=== PATIENT | male | born 1980 ===

== ENCOUNTER → 2020-02-03 10:34 | Outpatient (BNVA) | payer MEDICARE, MEDICAID, SELFPAY | PROVIDERS: PCP Family Medicine; Referring Provider Family Medicine; Visit Provider Surgery | DX: Z01.818 Encounter for other preprocedural examination (principal); E66.01 Morbid (severe) obesity due to excess calories; R06.02 Shortness of breath; Z68.42 Body mass index [BMI] 45.0-49.9, adult; Z98.84 Bariatric surgery status | CPT/HCPCS: Q3014 ==

== ENCOUNTER → 2020-02-18 08:38 | Outpatient (BNVA) | payer MEDICARE, MEDICAID, SELFPAY | PROVIDERS: PCP Family Medicine; Visit Provider Surgery | DX: E66.01 Morbid (severe) obesity due to excess calories (principal); Z68.43 Body mass index [BMI] 50.0-59.9, adult; Z98.84 Bariatric surgery status | CPT/HCPCS: Q3014 ==

== ENCOUNTER → 2020-03-03 08:26 | Outpatient (BNVA) | payer MEDICARE, MEDICAID, SELFPAY | PROVIDERS: PCP Family Medicine; Visit Provider Dietitian, Registered | DX: Z76.89 Persons encountering health services in other specified circumstances (principal) ==

== ENCOUNTER 2020-03-04 06:38 | Day surgery (SDC) | payer MEDICARE, MEDICAID, SELFPAY ==
--- NOTE | 2020-03-03 10:24 | HO.ANESPROP2 ---
Documented by User: Ann-Marie Patricia 03/03/20 10:25 HPI - Anesthesia Eval Consult details Narrative: 39yo M for Upper Endoscopy [facility] Past Medical History Medical History (Updated 03/04/20 @ 07:34 by Marley Aguero) Anxiety BMI 50.0-59.9, adult Chronic pain Depression DJD (degenerative joint disease) GERD (gastroesophageal reflux disease) Gout Hyperlipidemia Neuropathy MILTON on CPAP PTSD (post-traumatic stress disorder) Shortness of breath Type 2 diabetes mellitus Family History Family History Father Cancer Diverticulitis Mother Diverticulitis Brother No problems noted. Surgical History Surgical History LAP-BAND surgery status Social History Social History Alcohol intake: current Alcohol intake frequency: holidays/special occasions only Smoking Status: Former smoker Use of substances other than those prescribed or required for medical reasons: Yes Substance Use Frequency: Occasionally Advance Directives: No Advance Directives Information Provided: No Meds Allergies Allergy/AdvReac Type Severity Reaction Status Date / Time pregabalin [From Lyrica] Allergy Mild ANGRY Verified 03/04/20 06:44 Home Medications Medication Instructions Recorded Confirmed Type cyclobenzaprine 10 mg tablet 10 mg PO BEDTIME 02/03/20 03/04/20 History dulaglutide 1.5 mg/0.5 mL 1.5 mg SUBCUT QWEEK 02/03/20 03/04/20 History subcutaneous pen injector esomeprazole magnesium 40 mg 40 mg PO DAILY 02/03/20 03/04/20 History capsule,delayed release losartan 50 mg tablet 50 mg PO DAILY 02/03/20 03/04/20 History metformin 500 mg tablet,extended 500 mg PO BID 02/03/20 03/04/20 History release 24 hr oxycodone 15 mg tablet 15 mg PO DAILY PRN tab 02/03/20 03/04/20 History oxycodone 30 mg tablet 30 mg PO TID PRN 02/03/20 03/04/20 History pravastatin 20 mg tablet 20 mg PO BEDTIME 02/03/20 03/04/20 History Exam Exam Date and Time: March 03, 2020 1024 Assessment and Plan Assessment Anesthesia Assessment: Chart Reviewed Documented by User: Marley Aguero 03/04/20 07:45 PMFSH Past Medical History Medical History (Updated 03/04/20 @ 07:34 by Marley Aguero) Anxiety BMI 50.0-59.9, adult Chronic pain Depression DJD (degenerative joint disease) GERD (gastroesophageal reflux disease) Gout Hyperlipidemia Neuropathy MILTON on CPAP PTSD (post-traumatic stress disorder) Shortness of breath Type 2 diabetes mellitus Family History Family History Father Cancer Diverticulitis Mother Diverticulitis Brother No problems noted. Family history of problems with anesthesia: No Surgical History Surgical History LAP-BAND surgery status History of Problems with Anesthesia: No Social History Social History Alcohol intake: current Alcohol intake frequency: holidays/special occasions only Smoking Status: Former smoker Use of substances other than those prescribed or required for medical reasons: Yes Substance Use Frequency: Occasionally Advance Directives: No Advance Directives Information Provided: No Meds Allergies Allergy/AdvReac Type Severity Reaction Status Date / Time pregabalin [From Lyrica] Allergy Mild ANGRY Verified 03/04/20 06:44 Home Medications Medication Instructions Recorded Confirmed Type cyclobenzaprine 10 mg tablet 10 mg PO BEDTIME 02/03/20 03/04/20 History dulaglutide 1.5 mg/0.5 mL 1.5 mg SUBCUT QWEEK 02/03/20 03/04/20 History subcutaneous pen injector esomeprazole magnesium 40 mg 40 mg PO DAILY 02/03/20 03/04/20 History capsule,delayed release losartan 50 mg tablet 50 mg PO DAILY 02/03/20 03/04/20 History metformin 500 mg tablet,extended 500 mg PO BID 02/03/20 03/04/20 History release 24 hr oxycodone 15 mg tablet 15 mg PO DAILY PRN tab 02/03/20 03/04/20 History oxycodone 30 mg tablet 30 mg PO TID PRN 02/03/20 03/04/20 History pravastatin 20 mg tablet 20 mg PO BEDTIME 02/03/20 03/04/20 History Exam Height,Weight and Vital Signs: Vital Signs Temp Pulse Resp BP Pulse Ox 03/04/20 06:48 98.5 F 75 18 123/78 97 Pertinent Lab Results Pertinent Lab Results: Lab Results 03/04/20 Range/Units 07:11 POC Glucose 113 (60-115) mg/dL 12 lead EKG: NSR 62. No T wave inversion Narrative Narrative: EKG on monitor shows T wave inversion. Patient with morbid obesity, diabetes. Asymptomatic. Will obtain 12 lead EKG Airway Mallampati Class: II TM Dist: >3cm Neck ROM: Full Heart: RRR Lungs: CTAB Assessment and Plan Assessment Anesthesia Assessment: Anesthesia Plan Discussed and Chart Reviewed Final Anesthetic Review NPO: Yes ASA Class: III Final Preanesthetic Review: No Changes in Pt Med Stat, Meds/Allgs Chart Reviewed, Consent Obtained/Reviewed and Anes Risks/Benef Reviewed Patient Risk: High Procedure Risk: Low Assessment/Block/Sedation in SS: Assess/Block/Sedation-SS Anesthetic Plan Anesthetic Plan: MAC: Disposition: Standard PACU
--- NOTE | 2020-03-03 13:08 | MHC.SHP ---
Pre-Procedural Eval Section B Chief Complaint: severe obesity Allergies: Allergies Allergy/AdvReac Type Severity Reaction Status Date / Time pregabalin [From Lyrica] Allergy Mild ANGRY Verified 02/18/20 16:04 Plan I have reviewed the history and physical and performed a pertinent physical examination on my patient. No changes have occurred unless specified.
--- NOTE | 2020-03-04 | ECG_ITS ---
Test Reason : ABN EKG PREOP Blood Pressure : / mmHG Vent. Rate : 062 BPM Atrial Rate : 062 BPM P-R Int : 148 ms QRS Dur : 094 ms QT Int : 410 ms P-R-T Axes : 023 001 009 degrees QTc Int : 416 ms Normal sinus rhythm Normal ECG No previous ECGs available Referred By: Marley Aguero Electronically Signed By:STACY SALES MD
[2020-03-04 06:48] VITALS: BP 123/78; PULSE 75; RESP 18; TEMP 36.9; O2SAT 97; BMI 56.1
[2020-03-04 07:14] LABS: Glucose, Whole Blood 113 mg/dL (60-115)
[2020-03-04] MEDS: Lactated Ringers 1,000 ML 100 ML IVCONT (07:32)
[2020-03-04 08:12] VITALS: BP 120/68; PULSE 93; RESP 16; TEMP 36.4; O2SAT 99
--- NOTE | 2020-03-04 08:25 | PC.NURSE ---
0817 PT AWAKE ABLE TO REPOSITION SELF O2 DCD TRIAL RA
--- NOTE | 2020-03-04 08:26 | PC.NURSE ---
0822 O2 DCD START SIPS PO SWALLOWS WITHOUT ISSUES
[2020-03-04 08:27] VITALS: BP 115/61; PULSE 85; RESP 18; O2SAT 97
--- NOTE | 2020-03-04 08:35 | OP_ITS ---
SURGEON: Sola Carroll MD PREOPERATIVE DIAGNOSIS: POSTOPERATIVE DIAGNOSIS: PROCEDURE PERFORMED: Upper endoscopy with antral biopsy x2. ESTIMATED BLOOD LOSS: COMPLICATIONS: None. ANESTHESIA: Total intravenous anesthesia with propofol given by the nurse television service engineer. ASSISTANTS: None. SPECIMENS: PREPROCEDURE DIAGNOSIS: History of gastric band with poor weight loss. POSTPROCEDURE DIAGNOSIS: Antral gastritis. CONDITION: Postprocedure, good. DESCRIPTION OF PROCEDURE: The patient was brought into the operating room, placed on stretcher in the left lateral decubitus position. A safety time-out was performed. Total intravenous anesthesia was administered using propofol by the nurse television service engineer. Once the patient was adequately sedated, the gastroscope was placed in posterior oropharynx, passed into the esophagus under direct vision. The entirety of the esophageal mucosa was evaluated down to the level of the GE junction was normal. GE junction was located at 38 cm from the incisors. There was no evidence of gastric band slippage. The gastric band was located at 40 cm from the incisors. The gastroscope was easily passed through the gastric band into the lower stomach and then retroflexed. There was no evidence of gastric band slippage or erosion. The mucosa was normal. Gastroscope was passed to the pre-pyloric region. There was antral gastritis, which was biopsied x2. There was erythema and increased granularity of the mucosa at the antrum. Gastroscope was passed through the pylorus down to the 3rd portion of duodenum, all of which was normal. All these portions of the upper endoscopy were documented using photo documentation. The gastroscope was retracted back in the stomach. Stomach was desufflated and the gastroscope was removed without difficulty. The patient tolerated the procedure well and was sent to recovery room in stable condition. SPECIMEN: Antral biopsy x2. MD DOMINGO Morales/MODL / [id number]
--- NOTE | 2020-03-04 08:40 | PC.NURSE ---
0830AWAKE ALERT O2 SATS 98 MONITORS AND IVF DCD DRESSES SELF ON STRETCHER SITTING CALL ANDERSON IN REACH PLAN TO AMB TO DC AREA
--- NOTE | 2020-03-04 08:52 | HO.POSTANES ---
Post Anesthesia Evaluation Post Anesthesia Evaluation Vital Signs: Vital Signs Temp Pulse Resp BP Pulse Ox 03/04/20 08:27 97.5 F 85 18 115/61 97 03/04/20 08:12 97.5 F 93 16 120/68 99 03/04/20 06:48 98.5 F 75 18 123/78 97 Anesthesia: General (tiva) Mental Status: Awake Pain Control: Satisfactory Nausea/Vomiting: None Hydration: Adequate Anesthesia-Related Issues: No Anes. Related Issues
--- NOTE | 2020-03-05 16:23 | PM.OP ---
Brief Operative Note Date of Service: 03/04/20 Pre-op diagnosis: Poor weight loss status post gastric band Post-op diagnosis: other (Mild antral gastritis) Procedure: Esophagogastroduodenoscopy and antral biopsy x2 Implants: None Surgeon: Sola Carroll MD Anesthesia: MAC Estimated blood loss (mL): 0 Pathology: other (Antral biopsy) Condition: stable Disposition: PACU
== END 2020-03-04 09:01 | disposition home or self-care (01) ==
PROVIDERS: PCP Family Medicine; Visit Provider Surgery
PROC: 0DJ08ZZ Inspection of Upper Intestinal Tract, Via Natural or Artificial Opening Endoscopic (ICD-10-PCS; CPT 43235; principal; 2020-03-04 07:30)
DX: E66.01 Morbid (severe) obesity due to excess calories (principal); Z68.43 Body mass index [BMI] 50.0-59.9, adult; K29.50 Unspecified chronic gastritis without bleeding; Z98.84 Bariatric surgery status; K21.9 Gastro-esophageal reflux disease without esophagitis; E11.9 Type 2 diabetes mellitus without complications; G47.33 Obstructive sleep apnea (adult) (pediatric); E78.5 Hyperlipidemia, unspecified; G62.9 Polyneuropathy, unspecified; Z79.84 Long term (current) use of oral hypoglycemic drugs; Z79.899 Other long term (current) drug therapy
CPT/HCPCS: 43239; 82947; 88305; 88342; 93005; J2250; J2765

== ENCOUNTER → 2020-03-25 08:10 | Outpatient (BNVA) | payer MEDICARE, MEDICAID, SELFPAY | PROVIDERS: PCP Family Medicine; Visit Provider Dietitian, Registered ==

== ENCOUNTER 2020-03-26 09:50 | Outpatient (REF) | payer MEDICARE, MEDICAID, SELFPAY ==
--- NOTE | 2020-03-26 10:27 | XR_ITS ---
EXAMINATION: XR CHEST CLINICAL INFORMATION: Shortness of breath COMPARISON: None TECHNIQUE: 2 views of the chest were obtained. FINDINGS: The lungs are well expanded. There is no focal consolidation, edema, or effusion. No pneumothorax. The cardiomediastinal silhouette is within normal limits. No acute osseous abnormality. XR/XR chest 2V IMPRESSION: Clear lungs.
[2020-03-26 10:54] LABS: MANUAL DIFF FLAG NO
[2020-03-26 11:01] LABS: Basophils Absolute Auto 0.1 X10*3/uL (0.0-0.2); Basophils Percent Auto 0.8 % (0-2); Eosinophils Absolute Auto 0.2 X10*3/uL (0.0-0.4); Eosinophils Percent Auto 2.2 % (0-4); Hematocrit 49.2 % (42-52); Hemoglobin 16.2 g/dl (14.0-18.0); Imm Gran Abs Auto 0.02 X10*3/uL (0.00-0.03); Imm Gran Pct Auto 0.2 % (0.0-0.4); Lymphocytes Absolute Auto 2.4 X10*3/uL (1.2-4.9); Lymphocytes Percent Auto 27.8 % (20-40); Mean Corpuscular HGB Conc 32.9 g/dl (31.0-36.0); Mean Corpuscular Hemoglobin 27.1 pg (27.0-33.0); Mean Corpuscular Volume 82.4 fL (80-98); Mean Platelet Volume 10.6 fL (9.4-12.4); Monocytes Absolute Auto 0.5 X10*3/uL (0.1-1.2); Monocytes Percent Auto 5.7 % (2-11); Neutrophils Absolute Auto 5.5 X10*3/uL (2.0-8.3); Neutrophils Percent Auto 63.3 % (45-73); Platelet Count 316 X10*3/uL (160-400); Red Blood Count 5.97 X10*6/uL (4.60-5.80); Red Cell Distribution Width 12.8 % (11.0-16.0); White Blood Count 8.7 X10*3/uL (4.8-10.8)
[2020-03-26 11:27] LABS: Alanine Aminotransferase 43 U/L (0-40); Alkaline Phosphatase 73 U/L (39-117); Anion Gap 13 (12-20); Aspartate Amino Transferase 25 U/L (5-37); Bilirubin Total 0.6 mg/dL (0.0-1.0); Blood Urea Nitrogen 16 mg/dL (9-16); C Reactive Protein 2.41 mg/dL (< or = 0.50); Carbon Dioxide 26 mmol/L (22-29); Chloride 103 mmol/L (96-108); Cholesterol 126 mg/dL; Estimated Glomerular Filt Rate > 60; Glucose Fasting 126 mg/dL (60-99); HDL Cholesterol 27 mg/dL; Iron 56 mcg/dL (45-160); LDL Cholesterol Calculated 82 mg/dl; Percent Iron Saturation 18 % (15-50); Sodium 137 mmol/L (135-145); Total Iron Binding Capacity 317 mcg/dL (228-428); Total Protein 7.2 g/dL (6.5-8.0); Triglycerides 87 mg/dL; Unsaturated Iron Binding 261 ug/dL
[2020-03-26 11:50] LABS: Thyroid Stimulating Hormone 1.36 uIU/mL (0.32-4.0); Vitamin D 25-OH Total 9.1 ng/mL (>30)
[2020-03-26 11:54] LABS: Vitamin B12 530 pg/mL (200-900)
[2020-03-27 13:13] LABS: Calcium (PTHI) 9.4 mg/dL (8.6-10.3); PTHI 46 pg/mL (14-64)
[2020-03-30 04:27] LABS: Zinc 58 mcg/dL (60-130)
[2020-03-30 16:12] LABS: Vitamin A 38 mcg/dL (38-98)
[2020-03-31 10:17] LABS: Vitamin B1 <6 nmol/L (8-30)
== END 2020-03-26 09:51 | disposition home or self-care (01) ==
LOC: HO.LAB 09:50
PROVIDERS: PCP Family Medicine; Visit Provider Surgery
DX: Z01.818 Encounter for other preprocedural examination (principal); R06.02 Shortness of breath; E66.01 Morbid (severe) obesity due to excess calories; Z68.43 Body mass index [BMI] 50.0-59.9, adult
CPT/HCPCS: 36415; 71046; 80053; 80061; 82306; 82607; 83540; 83970; 84425; 84443; 84590; 84630; 85025; 86140

== ENCOUNTER 2020-03-27 14:14 | Outpatient (REF) | payer MEDICARE, MEDICAID, SELFPAY ==
[2020-03-28 14:01] LABS: H Pylori Breath Test NOT DETECTED (NOT DETECTED)
== END 2020-03-27 14:15 | disposition home or self-care (01) ==
LOC: HO.LNP 14:14
PROVIDERS: PCP Family Medicine; Visit Provider Surgery
DX: E66.01 Morbid (severe) obesity due to excess calories (principal); Z68.43 Body mass index [BMI] 50.0-59.9, adult; Z11.0 Encounter for screening for intestinal infectious diseases
CPT/HCPCS: 83013; 99211; 99212

== ENCOUNTER → 2020-05-12 13:58 | Outpatient (BNVA) | payer MEDICARE, MEDICAID, SELFPAY | PROVIDERS: PCP Family Medicine; Visit Provider Surgery | DX: E66.01 Morbid (severe) obesity due to excess calories (principal); Z68.43 Body mass index [BMI] 50.0-59.9, adult | CPT/HCPCS: 99212 ==

== ENCOUNTER → 2020-05-29 14:14 | Outpatient (BNVA) | payer MEDICARE, MEDICAID, SELFPAY | PROVIDERS: PCP Family Medicine; Visit Provider Surgery | DX: E66.01 Morbid (severe) obesity due to excess calories (principal); Z68.43 Body mass index [BMI] 50.0-59.9, adult | CPT/HCPCS: 99212 ==

== ENCOUNTER → 2020-06-04 08:13 | Outpatient (BNVA) | payer MEDICARE, MEDICAID, SELFPAY | PROVIDERS: PCP Family Medicine; Visit Provider Dietitian, Registered | DX: E66.9 Obesity, unspecified (principal); Z68.43 Body mass index [BMI] 50.0-59.9, adult | CPT/HCPCS: 97803 ==

== ENCOUNTER → 2020-06-12 13:49 | Outpatient (BNVA) | payer MEDICARE, MEDICAID, SELFPAY | PROVIDERS: PCP Family Medicine; Visit Provider Surgery | DX: E66.01 Morbid (severe) obesity due to excess calories (principal); Z68.43 Body mass index [BMI] 50.0-59.9, adult | CPT/HCPCS: 99212 ==

== ENCOUNTER → 2020-06-23 14:32 | Outpatient (BNVA) | payer MEDICARE, MEDICAID, SELFPAY | PROVIDERS: PCP Family Medicine; Referring Provider Family Medicine; Visit Provider Surgery | DX: E66.01 Morbid (severe) obesity due to excess calories (principal); Z68.43 Body mass index [BMI] 50.0-59.9, adult | CPT/HCPCS: 99212 ==

== ENCOUNTER → 2020-06-26 13:33 | Outpatient (BNVA) | payer MEDICARE, MEDICAID, SELFPAY | PROVIDERS: PCP Family Medicine; Referring Provider Family Medicine; Visit Provider Physician Assistant ==

== ENCOUNTER 2020-07-01 06:13 | Inpatient (IN) | payer MEDICARE, MEDICAID, SELFPAY ==
--- NOTE | 2020-06-23 15:35 | ECG_ITS ---
Test Reason : SOB Blood Pressure : / mmHG Vent. Rate : 056 BPM Atrial Rate : 056 BPM P-R Int : 134 ms QRS Dur : 090 ms QT Int : 432 ms P-R-T Axes : 023 002 018 degrees QTc Int : 416 ms Sinus bradycardia Otherwise normal ECG When compared with ECG of 04-MAR-2020 07:36, No significant change was found Referred By: Sola Carroll Electronically Signed By:BETH RODRIGES
[2020-06-23 16:06] LABS: MANUAL DIFF FLAG NO
[2020-06-23 16:10] LABS: Basophils Absolute Auto 0.1 X10*3/uL (0.0-0.2); Basophils Percent Auto 0.6 % (0-2); Eosinophils Absolute Auto 0.1 X10*3/uL (0.0-0.4); Hematocrit 47.7 % (42-52); Hemoglobin 15.6 g/dl (14.0-18.0); Imm Gran Abs Auto 0.03 X10*3/uL (0.00-0.03); Imm Gran Pct Auto 0.3 % (0.0-0.4); Lymphocytes Absolute Auto 2.3 X10*3/uL (1.2-4.9); Lymphocytes Percent Auto 19.9 % (20-40); Mean Corpuscular HGB Conc 32.7 g/dl (31.0-36.0); Mean Corpuscular Hemoglobin 27.1 pg (27.0-33.0); Mean Corpuscular Volume 82.8 fL (80-98); Mean Platelet Volume 10.3 fL (9.4-12.4); Monocytes Absolute Auto 0.6 X10*3/uL (0.1-1.2); Monocytes Percent Auto 4.9 % (2-11); Neutrophils Absolute Auto 8.4 X10*3/uL (2.0-8.3); Neutrophils Percent Auto 73.3 % (45-73); Platelet Count 322 X10*3/uL (160-400); Red Blood Count 5.76 X10*6/uL (4.60-5.80); Red Cell Distribution Width 13.7 % (11.0-16.0); White Blood Count 11.5 X10*3/uL (4.8-10.8)
[2020-06-23 16:18] LABS: INTERNATIONAL NORM RATIO 1.1 (0.9-1.1)
[2020-06-23 16:23] LABS: Partial Thromboplastin Time 41.3 SEC (24.1-38.0)
[2020-06-23 16:36] LABS: Albumin Level 4.2 g/dL (3.5-5.0); Anion Gap 14 (12-20); Blood Urea Nitrogen 16 mg/dL (9-16); Calcium 9.4 mg/dL (8.4-10.2); Carbon Dioxide 23 mmol/L (22-29); Chloride 106 mmol/L (96-108); Estimated Glomerular Filt Rate > 60; Glucose Random 120 mg/dL (60-115); Potassium 4.4 mmol/L (3.3-5.1); Sodium 139 mmol/L (135-145)
[2020-06-29 09:28] VITALS: BMI 50.3
--- NOTE | 2020-06-30 08:56 | P.CONAN_ITS ---
Documented by User: Ann-Marie Gomez 06/30/20 08:57 HPI - Anesthesia Eval Consult details Narrative: 40yo M for Laparosopic Lap Band Removal to Sleeve Gastrectomy MILTON, but CPAP broken PMFSH Active Problems Active Problems: All Active Problems (Updated 06/29/20 @ 09:23 by Amber Rodríguez) Morbid obesity with BMI of 50.0-59.9, adult (Acute) Preoperative examination (Acute) Vitamin D deficiency (Acute) Zinc deficiency (Acute) Vitamin B1 deficiency (Acute) BMI 50.0-59.9, adult (Acute) MILTON on CPAP (Acute) Shortness of breath (Acute) LAP-BAND surgery status (Acute) Past Medical History Medical History Anxiety BMI 50.0-59.9, adult Chronic pain Depression DJD (degenerative joint disease) Fracture of finger of right hand GERD (gastroesophageal reflux disease) Gout Hyperlipidemia Lumbar herniated disc Neuropathy MILTON on CPAP PTSD (post-traumatic stress disorder) Shortness of breath Type 2 diabetes mellitus Family History Family History Father Cancer Diverticulitis Mother Diverticulitis Brother No problems noted. Family history of problems with anesthesia: No Surgical History Surgical History History of endoscopy LAP-BAND surgery status History of Problems with Anesthesia: No Social History Social History Are you a primary animal daycare provider to a significant other at home: No Do you presently have visiting nurse or other home services: No Alcohol intake: current Alcohol intake frequency: holidays/special occasions only Smoking Status: Former smoker Smoking Quit Date: Age 23 Use of substances other than those prescribed or required for medical reasons: No Have you been hit, kicked, punched, or otherwise hurt by someone within the past year? If so, by whom?: No Are you DNR?: No Advance Directives: No Advance Directives Information Provided: No Advance Directives on File: No Recently lost weight without trying: No How much weight loss: 34pounds or more Eating poorly because of decreased appetite: No Nutrition screen score: 4 Nutrition Risks: No Nutritional Risk Poor oral hygiene: No Meds Allergies Allergy/AdvReac Type Severity Reaction Status Date / Time pregabalin [From Lyrica] Allergy Mild ANGRY Verified 06/29/20 09:25 Home Medications Medication Instructions Recorded Confirmed Last Taken Type dulaglutide 1.5 mg/0.5 mL 1.5 mg SUBCUT QWEEK 02/03/20 06/29/20 Unknown History subcutaneous pen injector esomeprazole magnesium 40 mg 40 mg PO DAILY 02/03/20 06/29/20 Unknown History capsule,delayed release losartan 50 mg tablet 50 mg PO DAILY 02/03/20 06/29/20 Unknown History metformin 500 mg tablet,extended 500 mg PO BID 02/03/20 06/29/20 Unknown History release 24 hr oxycodone 15 mg tablet 15 mg PO DAILY PRN tab 02/03/20 06/29/20 Unknown History oxycodone 30 mg tablet 30 mg PO TID PRN 02/03/20 06/29/20 Unknown History pravastatin 20 mg tablet 20 mg PO BEDTIME 02/03/20 06/29/20 Unknown History allopurinol 300 mg tablet 300 mg PO DAILY 05/12/20 06/29/20 Unknown History cyclobenzaprine 10 mg tablet 10 mg PO BEDTIME PRN 05/12/20 06/29/20 Unknown History zinc 50 mg PO DAILY 06/29/20 06/29/20 Unknown History Exam Exam Date and Time: June 30, 2020 0856 Height,Weight and Vital Signs: Height 5 ft 11 in Weight 163.747 kg Pertinent Lab Results Pertinent Lab Results: Laboratory Tests 06/23/20 06/23/20 06/23/20 15:44 15:44 15:44 WBC 11.5 H RBC 5.76 Hgb 15.6 Hct 47.7 MCV 82.8 MCH 27.1 MCHC 32.7 RDW 13.7 Plt Count 322 MPV 10.3 Immature Gran % (Auto) 0.3 Neut % (Auto) 73.3 H Lymph % (Auto) 19.9 L Gooding % (Auto) 4.9 Eos % (Auto) 1.0 Baso % (Auto) 0.6 Lymph # (Auto) 2.3 Gooding # (Auto) 0.6 Eos # (Auto) 0.1 Baso # (Auto) 0.1 Abs Immat Gran (auto) 0.03 Absolute Neuts (auto) 8.4 H Absolute Nucleated RBC 0.000 Nucleated RBC % (auto) 0.0 PT 13.0 INR 1.1 APTT 41.3 H Sodium 139 Potassium 4.4 Chloride 106 Carbon Dioxide 23 Anion Gap 14 BUN 16 Creatinine 0.87 Estim Creat Clear Calc TNP Estimated GFR > 60 Random Glucose 120 H Calcium 9.4 Albumin 4.2 Blood Type Antibody Screen 06/23/20 15:44 WBC RBC Hgb Hct MCV MCH MCHC RDW Plt Count MPV Immature Gran % (Auto) Neut % (Auto) Lymph % (Auto) Gooding % (Auto) Eos % (Auto) Baso % (Auto) Lymph # (Auto) Gooding # (Auto) Eos # (Auto) Baso # (Auto) Abs Immat Gran (auto) Absolute Neuts (auto) Absolute Nucleated RBC Nucleated RBC % (auto) PT INR APTT Sodium Potassium Chloride Carbon Dioxide Anion Gap BUN Creatinine Estim Creat Clear Calc Estimated GFR Random Glucose Calcium Albumin Blood Type B Positive Antibody Screen NEGATIVE Narrative Narrative: EKG 06/2020 Vent. Rate : 056 BPM Atrial Rate : 056 BPM P-R Int : 134 ms QRS Dur : 090 ms QT Int : 432 ms P-R-T Axes : 023 002 018 degrees QTc Int : 416 ms Sinus bradycardia Otherwise normal ECG When compared with ECG of 04-MAR-2020 07:36, No significant change was found Assessment and Plan Assessment Anesthesia Assessment: Chart Reviewed Documented by User: Jannette Monahan 07/01/20 07:27 [facility] Past Medical History Medical History Anxiety BMI 50.0-59.9, adult Chronic pain Depression DJD (degenerative joint disease) Fracture of finger of right hand GERD (gastroesophageal reflux disease) Gout Hyperlipidemia Lumbar herniated disc Neuropathy MILTON on CPAP PTSD (post-traumatic stress disorder) Shortness of breath Type 2 diabetes mellitus Family History Family History Father Cancer Diverticulitis Mother Diverticulitis Brother No problems noted. Surgical History Surgical History History of endoscopy LAP-BAND surgery status Social History Social History Are you a primary animal daycare provider to a significant other at home: No Do you presently have visiting nurse or other home services: No Alcohol intake: current Alcohol intake frequency: holidays/special occasions only Smoking Status: Former smoker Smoking Quit Date: Age 23 Use of substances other than those prescribed or required for medical reasons: No Have you been hit, kicked, punched, or otherwise hurt by someone within the past year? If so, by whom?: No Are you DNR?: No Advance Directives: No Advance Directives Information Provided: No Advance Directives on File: No Recently lost weight without trying: No How much weight loss: 34pounds or more Eating poorly because of decreased appetite: No Nutrition screen score: 4 Nutrition Risks: No Nutritional Risk Poor oral hygiene: No Meds Allergies Allergy/AdvReac Type Severity Reaction Status Date / Time pregabalin [From Lyrica] Allergy Mild ANGRY Verified 06/29/20 09:25 Home Medications Medication Instructions Recorded Confirmed Last Taken Type dulaglutide 1.5 mg/0.5 mL 1.5 mg SUBCUT QWEEK 02/03/20 06/29/20 Unknown History subcutaneous pen injector esomeprazole magnesium 40 mg 40 mg PO DAILY 02/03/20 06/29/20 Unknown History capsule,delayed release losartan 50 mg tablet 50 mg PO DAILY 02/03/20 06/29/20 Unknown History metformin 500 mg tablet,extended 500 mg PO BID 02/03/20 06/29/20 Unknown History release 24 hr oxycodone 15 mg tablet 15 mg PO DAILY PRN tab 02/03/20 06/29/20 Unknown History oxycodone 30 mg tablet 30 mg PO TID PRN 02/03/20 06/29/20 Unknown History pravastatin 20 mg tablet 20 mg PO BEDTIME 02/03/20 06/29/20 Unknown History allopurinol 300 mg tablet 300 mg PO DAILY 05/12/20 06/29/20 Unknown History cyclobenzaprine 10 mg tablet 10 mg PO BEDTIME PRN 03/23/21 05/10/21 Unknown History zinc 50 mg PO DAILY 06/29/20 06/29/20 Unknown History Exam Airway Mallampati Class: I TM Dist: >3cm Neck ROM: Full Assessment and Plan Assessment Anesthesia Assessment: Anesthesia Plan Discussed and Chart Reviewed Final Anesthetic Review NPO: Yes ASA Class: III Final Preanesthetic Review: No Changes in Pt Med Stat, Meds/Allgs Chart Reviewed, Consent Obtained/Reviewed and Anes Risks/Benef Reviewed Patient Risk: Intermediate Procedure Risk: Intermediate Assessment/Block/Sedation in SS: Assess/Block/Sedation-SS Anesthetic Plan Anesthetic Plan: GA Disposition: Standard PACU
--- NOTE | 2020-06-30 13:56 | MHC.SHP ---
Pre-Procedural Eval Section B Chief Complaint: obesity Allergies: Allergies Allergy/AdvReac Type Severity Reaction Status Date / Time pregabalin [From Lyrica] Allergy Mild ANGRY Verified 06/29/20 09:25 Plan I have reviewed the history and physical and performed a pertinent physical examination on my patient. No changes have occurred unless specified.
[2020-07-01] VITALS (20 sets, daily range): BP systolic 116–186; BP diastolic 60–89; PULSE 52–82; RESP 16–20; TEMP 35.6–36.9; O2SAT 97–100
[2020-07-01 06:48] LABS: COVID-19 Test Negative (Negative); IDNOW Serial# 9DD0AD1C
[2020-07-01 07:01] LABS: Glucose, Whole Blood 81 mg/dL (60-115)
[2020-07-01] MEDS: Lactated Ringers 1,000 ML 100 ML IVCONT (07:07)
--- NOTE | 2020-07-01 10:26 | P.BOP_ITS ---
Brief Operative Note Date of Service: 07/01/20 Pre-op diagnosis: Obesity, BMI 50.3, sleep apnea, hypercholesterolemia, and type 2 diabetes mellitus Post-op diagnosis: other ( same and hiatal hernia) Procedure: laparoscopic removal of gastric band, hiatal hernia repair, sleeve gastrectomy, racheal block, and intraoperative endoscopy Implants: covidien calli Surgeon: Sola Carroll MD Anesthesia: GETA Was an Grinding Machine Operator Automatic used for this Procedure?: Yes Grinding Machine Operator Automatic: Leticia Hayden Estimated blood loss (mL): 10 Pathology: other ( partial gastrectomy) Condition: stable Disposition: PACU
--- NOTE | 2020-07-01 10:29 | P.OP_ITS ---
Operative Note Operative Note Date of Service: 07/01/20 Narrative: Patient was brought into the operating room and placed on the operating room table in the supine position. General anesthesia was induced. Normal DVT prophylaxis was instituted and the patient received 2 grams of cefotetan preoperatively. The abdomen was then prepped and draped in the normal sterile fashion. A safety time-out was performed. A mixture of 1% lidocaine with epinephrine and ?% Marcaine plain was used to a nesthetize the planned incision site in the left upper quadrant. A #11 scalpel was used to make a 5 mm left upper quadrant transverse incision through which a veress needle was placed. Three pops were heard going through the fascia. A saline drop test was used to confirm that the veress needle was intraabdominal. An optiview technique was then used to place a 5mm port in the left upper quadrant. A 5 mm 30 degree laproscope was then placed through this port and the abdominal cavity was surveyed and was normal. the gastric band was seen as well as the tubing in the upper abdomen. The patient was placed in reverse Trendelenburg positioning. A mei liver retractor was then placed in the subxyphoid position and it was used to hold up the left lobe of the liver to the abdominal wall. This was secured to the bed using the liver retractor dickinson. A MATTHEW block was then performed for pain control on the right side of the abdomen. A 5 mm port was placed in the right upper quadrant near the falciform ligament. A 15 mm port was then placed in the mid epigastrium. One additional 5 mm port was placed in the left upper quadrant just to the left of the placement of the first port. I then performed a MATTHEW block on the left side of the abdomen. I then took down the adhesions of the omentum to the underside of the left lobe of the liver. We cut the gastric band tubing and umbilical the gastric band and removed it from its tunnel. We then removed the gastric band from the 15 mm port site. We then used the LigaSure device to take down the adhesions of the stomach to itself thereby opening up the gastric band tunnel until the stomach was completely flat. I then removed the epigastric fat pad; there was a small anterior hiatal hernia noted. I reapproximated the left and right crura with a total of 1 stitch of 2-0 ethibond and a laparoscopic knot pusher. There was no residual hiatal hernia. I then opened up the angle of His. We then gained entry into the lesser sac about 4-5 cm from the pylorus. I had anesthesia place a 34 Spanish orogastric tube into the distal antrum to use as a sizing tool for gastric pouch size. I divided the short gastric vessels up to the angle of His. We then started the creation of the gastric pouch by firing a 60 mm purple load endostapler up the stomach about 4-5 cm from the pylorus. We completed the creation of the gastric pouch using a total of 5 firings of a 60 mm purple load stapler. We had anesthesia remove the orogastric tube, then we clamped across the distal antrum using a fired 60 mm endostapler. We flattened the patient and then instilled normal saline surrounding the newly created staple line. I then performed an on-table endoscopy. I passed the gastroscopy into the posterior oropharynx and down the esophagus evaluating the esophageal mucosa which was normal. There was no evidence of hiatal hernia. I passed the gastroscope into the gastric pouch and insufflated the gastric pouch. There was healthy pink mucosa and no evidence of active bleeding. There was no evidence of leak on laparoscopy. I desufflated the gastric pouch and removed the endoscope. I removed the endostapler from the abdomen and suctioned the fluid from the left upper quadrant. I then removed the partial gastrectomy specimen through the epigastric 12 mm port site. I reapproximated the 12 mm port using a 0 maxon suture with a laparoscopic suture passer. I instilled local anesthetic into the fascial closure site and tied the suture down at a pressure of 8-10 mm of Hg. There was no residual fascial defect. We removed the liver retractor and the left upper quadrant 5 mm ports under direct visualization. There was no evidence of any active bleeding. I desufflated the abdomen through the last remaining port and removed the laparoscope and 5 mm port. We then used local anesthetic to anesthetize the skin overlying the subcutaneous port in the right mid lateral abdomen. I used a 11. Scalpel to make a 2 and half to 3 cm transverse incision overlying the subcutaneous port. I dissected the subcutaneous tissues down to the level of the gastric band port. We opened up the capsule overlying the gastric band port and removed the port and the residual gastric band tubing from the abdomen in its entirety and passed off the field. We placed local anesthetic in to the fascia and the subcutaneous tissues. We reapproximated all incisions with a 4-0 monocryl subcuticular stitch. We cleaned and dried the abdominal skin and applied dermabond skin glue to all skin incisions. All counts were correct at the end of the case. The patient was awake and in stable condition prior to extubation and transfer to the recovery room.
[2020-07-01] MEDS: ondansetron HCL 4 MG/2 ML VIAL IVPUSH ×3 (10:34→21:33)
[2020-07-01] MEDS: fentaNYL citrate/PF 100 MCG/2 ML VIAL 50 MCG IVPUSH ×4 (10:40→11:05)
--- NOTE | 2020-07-01 10:51 | PM.PNGS ---
Subjective Subjective Date of Service: 07/02/20 <Leticia Hayden PA-C - Last Filed: 07/02/20 09:52> 07/02/20 <Sola Carroll MD - Last Filed: 07/02/20 09:20> Interval history: POD #1: Patient is doing well. Has been ambulating, using the incentive spirometer, and tolerating po liquids. No nausea or abdominal pain. Has some mild incisional pain. <Leticia Hayden PA-C - Last Filed: 07/02/20 09:52> Pod #1 s/p lap removal of gastric band and port, sleeve gastrectomy, and hiatal hernia repair. Doing well. Tolerating stage 3 diet, ambulating in hallway. Pain well controlled. Denies nausea or vomiting. Vitals and labs reviewed and are within limit for post op day 1. On exam, patient is well appearing, abdomen is soft, nd, mild appropriate incisional tenderness. Incisions c/d/I with dermabond in place. Plan: d/c home today. Follow up with me in 2 weeks. <Sola Carroll MD - Last Filed: 07/02/20 09:20> Physical Exam Vital Signs: Vital Signs: Last Vital Signs Temp 98.0 F 07/01/20 10:30 Pulse 82 07/01/20 10:35 Resp 18 07/01/20 10:40 BP 156/81 H 07/01/20 10:35 Pulse Ox 99 07/01/20 10:35 Body Mass Index 50.3 <Leticia Hayden PA-C - Last Filed: 07/02/20 09:52> Const: General: cooperative, comfortable, no acute distress, alert and awake <Leticia Hayden PA-C - Last Filed: 07/02/20 09:52> Nutritional Appearance: obese <Leticia Hayden PA-C - Last Filed: 07/02/20 09:52> GI: Inspection: Yes normal to inspection, Yes incision (normal, slight erythema at site of surgical glue, no tenderness/warmth/drai) and Yes obesity <ISACC Dunn Last Filed: 07/02/20 09:52> Extrem: Right lower extremity: lower leg Details: no tenderness; no edema <Leticia Hadyen PA-C Lopez Last Filed: 07/02/20 09:52> Left lower extremity: lower leg Details: no tenderness; no edema <Leticia Hayden PA-C Lopez Last Filed: 07/02/20 09:52> Progress Note: A&P Assessment and plan (1) Morbid obesity with BMI of 50.0-59.9, adult: Status: Acute <Leticia Hayden PA-C - Last Filed: 07/02/20 09:52> (2) LAP-BAND surgery status: Problem details: 2010 <Leticia Hayden PA-C Lopez Last Filed: 07/02/20 09:52> Status: Acute <ISACC Dunn Last Filed: 07/02/20 09:52> (3) BMI 50.0-59.9, adult: Status: Acute <ISACC Dunn Last Filed: 07/02/20 09:52> (4) Hiatal hernia: Status: Acute <ISACC Dunn Last Filed: 07/02/20 09:52> (5) History of repair of hiatal hernia: Status: Acute <ISACC Dunn Last Filed: 07/02/20 09:52> (6) Intestinal malabsorption following gastrectomy: Status: Acute <ISACC Dunn Last Filed: 07/02/20 09:52> (7) S/P laparoscopic sleeve gastrectomy: Status: Acute <ISACC Dunn Last Filed: 07/02/20 09:52> Assessment and Plan: POD #1: Patient is doing well and will be discharged home today. All the discharge instructions were reviewed with the patient and given in writing. Patient will follow up as scheduled in 2 weeks. <ISACC Dunn Last Filed: 07/02/20 09:52> Fall Risk Details Current Medications: Current Medications Generic Name Dose Route Start Last Admin Trade Name Freq PRN Reason Stop Dose Admin Fentanyl 50 mcg 07/01/20 07:27 07/01/20 10:40 Fentanyl Citrate/Pf 100 Mcg/2 Ml Vial IVPUSH 50 mcg Q5M PRN Administration Pain, Severe (Pain Scale 7-10) Lactated Ringer's 1,000 mls @ 100 mls/hr 07/01/20 06:15 07/01/20 07:07 Lr IVCONT 100 mls/hr .Q10H NADJA Administration Promethazine HCl 6.25 mg/ 50.25 mls @ 201 mls/hr 07/01/20 10:39 07/01/20 10:45 Sodium Chloride IV 201 mls/hr ONCE PRN Administration Nausea and Vomiting Ondansetron HCl 4 mg 07/01/20 07:27 07/01/20 10:34 Ondansetron Hcl 4 Mg/2 Ml Vial IVPUSH 4 mg ONCE PRN Administration Nausea and Vomiting Oxycodone HCl 5 mg 07/01/20 07:27 Oxycodone Hcl Immed Release 5 Mg Tablet PO ONCE PRN Pain, Severe (Pain Scale 7-10) <Leticia Hayden PA-C - Last Filed: 07/02/20 09:52> Time Spent With Patient Time: Total time spent is greater than 50% in coordination of care (as documented) at patient's floor/unit and/or counseling patient: <Leticia Hayden PA-C - Last Filed: 07/02/20 09:52> Time with patient: less than 15 minutes <Sola Carroll MD - Last Filed: 07/02/20 09:20>
--- NOTE | 2020-07-01 10:53 | P.DS_ITS ---
DS: Providers Provider Date of Service: 07/02/20 Date of admission: 07/01/20 06:13 Primary care physician: Prema Ruiz MD DS: Diagnosis Discharge Diagnosis (1) Morbid obesity with BMI of 50.0-59.9, adult: Status: Acute (2) LAP-BAND surgery status: Status: Acute Problem details: 2010 (3) BMI 50.0-59.9, adult: Status: Acute (4) Hiatal hernia: Status: Acute (5) History of repair of hiatal hernia: Status: Acute (6) Intestinal malabsorption following gastrectomy: Status: Acute (7) S/P laparoscopic sleeve gastrectomy: Status: Acute DS: Medications Discharge Medications Home Medications: Home Medications Medication Instructions Recorded Confirmed dulaglutide 1.5 mg/0.5 mL 1.5 mg SUBCUT QWEEK 02/03/20 06/29/20 subcutaneous pen injector esomeprazole magnesium 40 mg 40 mg PO DAILY 02/03/20 06/29/20 capsule,delayed release losartan 50 mg tablet 50 mg PO DAILY 02/03/20 06/29/20 metformin 500 mg tablet,extended 500 mg PO BID 02/03/20 06/29/20 release 24 hr oxycodone 15 mg tablet 15 mg PO DAILY PRN tab 02/03/20 06/29/20 oxycodone 30 mg tablet 30 mg PO TID PRN 02/03/20 06/29/20 pravastatin 20 mg tablet 20 mg PO BEDTIME 02/03/20 06/29/20 allopurinol 300 mg tablet 300 mg PO DAILY 05/12/20 06/29/20 cyclobenzaprine 10 mg tablet 10 mg PO BEDTIME PRN 05/12/20 06/29/20 zinc 50 mg PO DAILY 06/29/20 06/29/20 Previous Rx's Medication Instructions Recorded cholecalciferol (vitamin D3) 1,250 1,250 mcg PO QWEEK #4 cap 03/26/20 mcg (50,000 unit) capsule thiamine HCl (vitamin B1) 100 mg 100 mg PO DAILY #30 tab 03/31/20 tablet acetaminophen 500 mg tablet 1,000 mg PO Q6H PRN #30 tab 06/23/20 docusate sodium 100 mg capsule 100 mg PO BID #30 cap 06/23/20 famotidine 20 mg tablet 20 mg PO DAILY #30 tab 06/23/20 ondansetron HCl 4 mg tablet 4 mg PO Q6H PRN 7 Days #30 tab 06/23/20 simethicone 80 mg chewable tablet 80 mg PO TID-QID PRN #30 tab 06/23/20 DS: Summary Time Spent with Patient Time attestation: Total time spent providing and/or coordinating discharge services: Discharge coordination time: Greater than 30 minutes Physical Exam 2 Vital Signs: Vital Signs: Last Vital Signs Temp 98.0 F 07/01/20 10:30 Pulse 82 07/01/20 10:35 Resp 16 07/01/20 10:45 BP 156/81 H 07/01/20 10:35 Pulse Ox 99 07/01/20 10:35 Body Mass Index 50.3 DS: Data Data Completed and Pending Pending studies at discharge: Pending at discharge 07/01/20 10:11 Surgical [PTH] Routine Labs on day of discharge: Laboratory Results - last 24 hr 07/01/20 07/01/20 06:14 06:57 POC Glucose 81 COVID-19 ([facility]) Negative COVID-19 Clin Com See Note Discharge Plan Discharge Patient Disposition: Home, Self-Care Discharge Diagnosis: obesity s/p removal of gastric band and laparoscopic sleeve gastrectomy and hiatal hernia repair Referrals: Prema Asencio MD [Primary Care Provider] - 1 Week Discharge Medications: Continued cholecalciferol (vitamin D3) 1,250 mcg (50,000 unit) capsule 1,250 mcg PO QWEEK Qty: 4 RF: 2 thiamine HCl (vitamin B1) 100 mg tablet 100 mg PO DAILY Qty: 30 RF: 0 zinc 50 mg tablet 50 mg PO DAILY RF: 0 oxycodone 30 mg tablet 30 mg PO TID PRN (Reason: Pain) RF: 0 losartan 50 mg tablet 50 mg PO DAILY RF: 0 Trulicity 1.5 mg/0.5 mL pen injector 1.5 mg subcut QWEEK RF: 0 pravastatin 20 mg tablet 20 mg PO BEDTIME RF: 0 esomeprazole magnesium 40 mg capsule,delayed release(DR/EC) 40 mg PO DAILY RF: 0 oxycodone 15 mg tablet 15 mg PO DAILY PRN (Reason: Pain) RF: 0 cyclobenzaprine 10 mg tablet 10 mg PO BEDTIME PRN (Reason: muscle spasm) RF: 0 allopurinol 300 mg tablet 300 mg PO DAILY RF: 0 acetaminophen [Tylenol Extra Strength] 500 mg tablet 1,000 mg PO Q6H PRN (Reason: pain) Qty: 30 RF: 1 famotidine [Pepcid AC] 20 mg tablet 20 mg PO DAILY Qty: 30 RF: 1 simethicone [Gas Relief (simethicone)] 80 mg tablet,chewable 80 mg PO TID-QID PRN (Reason: abdominal distention) Qty: 30 RF: 1 ondansetron HCl [Zofran] 4 mg tablet 4 mg PO Q6H PRN (Reason: nausea and vomiting) 7 Days Qty: 30 RF: 1 docusate sodium [Colace] 100 mg capsule 100 mg PO BID Qty: 30 RF: 1 Discontinued metformin 500 mg tablet extended release 24 hr 500 mg PO BID RF: 0 Discharge Orders: Discharge Order (Routine); Ordered 07/02/20 Ordered By: Sola Carroll Diet: other Activity on Discharge: No heavy lifting Stand Alone Forms: Patient Portal Discharge page Activity Restrictions/Additional Instructions: Discharge Instructions 1. Please call your doctor or come back to the emergency room should any new symptoms arise. 2. You will receive a courtesy call from [facility] 24-48 hours aft er discharge. 3. Activity: abstain from alcohol, practice limited stair climbing, no bending, no driving, no exercise, no illicit substances, no lifting, no sex, no tub bath, no work. 4. Diet: continue stage 3 protein shakes until your [address] Carroll. 5. Dressing Change/Wound Care: Your incision is covered by surgical glue. If the area is tender, you may apply an ice pack for short intervals (no more than 20 minutes on, followed by at least 20 minutes off). Do not apply heat. Do not use creams, lotions, or topical antibiotics unless instructed to do so by your surg padmini. These can cause infection or allergic reaction. 6. Call your doctor if: - Your temperature exceeds 101.5 F - You experience excessive pain or swelling - You have an unexpected reaction to medication - You have excessive bleeding - You experience continued vomiting/nausea - Your incision begins to separate - Your incision shows signs of infection such as increased redness, swelling, e xcessive pain, heat, or drainage (light blood or clear fluid is normal) 7. General instructions: - No lifting greater than 5 lbs for the next 4 weeks. - No driving within 24 hours of taking narcotic pain medications. - If you do not move your bowels in the next 2 days, please take milk of magnesia over the counter. Please follow the post op diet and do not advance your diet until you are seen in the office in about 2 weeks. - Please walk around your home every hour or two to prevent blood clots from forming in your legs. You do not need to wake from sleeping to walk. - Please sleep in a bed or couch to prevent kinking at the hips and knees. - Please take your incentive spirometer (your lung government program manager) home with you and use it for the next few days to prevent pneumonias. - You may shower, no hot tubs, baths or swimming pools. - Please call the office with any questions or concerns such as increasing abdominal pain, fever, chills, shortness of breath, chest pain, leg pain or sw elling, or redness or drainage from your incisions. - Please stay on stage 3 diet which includes sugar free clear liquids such as ice pops and jello and broth and crystal light. Avoid all carbonation. Please drink 3 protein shakes with at least 25-30 grams of protein daily or 3 of the Celebrate 4:1 shakes which can be purchased in our office. The Celebrate shakes have all of the bariatric vitamins you need if you consume these shakes. If you are drinking other protein shakes, you will need to purchase the Celebrate multivitamins and calcium that we provide in the office (they will provide all the vitamins you need). Please make sure you are consuming at least 40-60 ounces of water in addition to your 3 protein shakes daily. 8. Do not hesitate to contact the office with any questions at . Discharge Summary Date of Service: discharged 07/01/20 Pre-op diagnosis: Obesity, BMI 50.3, sleep apnea, hypercholesterolemia, and type 2 diabetes mellitus Post-op diagnosis: other ( same and hiatal hernia) Procedure: laparoscopic removal of gastric band, hiatal hernia repair, sleeve gastrectomy, racheal block, and intraoperative endoscopy Discharge Medications: 1. Simethicone 80mg tablet chewable (Si tablet every 6 hours orally for 7 days, #28, 1 RF) q4h prn gas 2. Acetaminophen 500 mg tablet (Si tablets as needed every 6 hours orally for 30 days, #240, 0 RF) 3. Ondansetron 4 mg tablet disintegrating (Si tablet every 6 hours orally for 7 days, #28, 1 RF) 4. Colace 100 mg capsule (Si capsule twice a day for 30 days, #60, 2 RF) 5. Pepcid 20 mg chewable tablet (Si tablet twice a day for 30 days, #60, 3 RF) Discharge Instructions: The patient should continue on the stage III bariatric diet, which includes 3 protein shakes of at least 20-30g of protein on a daily basis. The patient was encouraged to avoid drinking liquids with her protein shakes. They should wait 30-45 minutes in between her meals and drinking water. She should drink at least 40-60 ounces of water on a daily basis. They should ambulate while at home to avoid any blood clots in her lower extremities. They should call with any questions or concerns such as increase in abdominal pain, persistent nausea, vomiting, redness and drainage from her incisions, fever, chills, shortness of breast, or chest pain beyond what is normal for her. The patient should avoid all heavy lifting greater than 5 pounds for the next 4 weeks. The patient is already scheduled to follow up with me in 2 weeks time, but should call the office with any questions prior to that follow up appointment. The patient should not advance their diet until they are seen in the office for the 2 week appointment. Hospital Course: The patient was admitted after undergoing removal of gastric band, laparoscopic sleeve gastrectomy, and repair of hiatal hernia. They were started on stage II (1 oz of fluid every 15 minutes) on POD #0. The next morning they were evaluated and started on stage III diet (protein shakes). All labs were within normal limits. On post-operative day #1 she was feeling better, nausea and epigastric pain improved and they were tolerating stage III bariatric diet well. The patient was discharged home. Discharge Disposition: Home. Care Plan Goals: weight loss Health Concerns: morbid obesity Plan of Treatment: weight loss managed by [facility] Assessment: stable 1 day s/p LSG
[2020-07-01] MEDS: HYDROmorphone HCl 0.5 MG/0.5 ML SYRINGE IVPUSH ×2 (11:15→11:20)
[2020-07-01] MEDS: Losartan Potassium 50 MG TABLET PO (12:49)
[2020-07-01] MEDS: Famotidine/PF 20 MG/2 ML VIAL IVPUSH ×2 (13:47→21:33)
[2020-07-01] MEDS: Lactated Ringers 1,000 ML 125 ML IVCONT ×2 (13:51→21:33)
[2020-07-01] MEDS: hydrALAZINE HCl 20 MG/ML VIAL 10 MG IVPUSH (15:48)
[2020-07-01] MEDS: HYDROmorphone HCl 0.5 MG/0.5 ML SYRINGE 0.25 MG IVPUSH ×2 (15:59→23:44)
[2020-07-01] MEDS: oxyCODONE HCl Immed Release 15 MG TABLET 30 MG PO (17:11)
[2020-07-01 17:32] LABS: Glucose, Whole Blood 239 mg/dL (60-115)
[2020-07-01] MEDS: LORazepam 2 MG/ML VIAL 0.25 MG IVPUSH (17:32)
[2020-07-01] MEDS: cefoTEtan disodium 2 GM in 0.9 % Sodium Chloride 50 ML IV (18:26)
[2020-07-01 20:19] LABS: Glucose, Whole Blood 185 mg/dL (60-115)
[2020-07-01] MEDS: Docusate Sodium 100 MG CAPSULE PO (21:33)
[2020-07-01] MEDS: Metoclopramide HCl 10 MG/2 ML VIAL IVPUSH (23:44)
[2020-07-01] MEDS: Cyclobenzaprine HCl 10 MG TABLET PO (23:55)
[2020-07-02 04:00] VITALS: BP 166/78; PULSE 69; RESP 20; TEMP 36.9; O2SAT 97
[2020-07-02] MEDS: hydrALAZINE HCl 20 MG/ML VIAL 10 MG IVPUSH (04:16)
[2020-07-02 04:32] LABS: MANUAL DIFF FLAG NO
[2020-07-02 04:34] LABS: Basophils Percent Auto 0.1 % (0-2); Hemoglobin 14.6 g/dl (14.0-18.0); Imm Gran Abs Auto 0.06 X10*3/uL (0.00-0.03); Imm Gran Pct Auto 0.4 % (0.0-0.4); Lymphocytes Absolute Auto 1.7 X10*3/uL (1.2-4.9); Lymphocytes Percent Auto 11.5 % (20-40); Mean Corpuscular HGB Conc 33.2 g/dl (31.0-36.0); Mean Corpuscular Hemoglobin 27.7 pg (27.0-33.0); Mean Corpuscular Volume 83.5 fL (80-98); Mean Platelet Volume 10.2 fL (9.4-12.4); Monocytes Absolute Auto 0.9 X10*3/uL (0.1-1.2); Monocytes Percent Auto 6.3 % (2-11); Neutrophils Absolute Auto 12.3 X10*3/uL (2.0-8.3); Neutrophils Percent Auto 81.7 % (45-73); Platelet Count 332 X10*3/uL (160-400); Red Blood Count 5.27 X10*6/uL (4.60-5.80); Red Cell Distribution Width 13.6 % (11.0-16.0)
[2020-07-02 05:04] LABS: Anion Gap 14 (12-20); Blood Urea Nitrogen 12 mg/dL (9-16); Calcium 8.8 mg/dL (8.4-10.2); Carbon Dioxide 24 mmol/L (22-29); Chloride 104 mmol/L (96-108); Creatinine Clr Calc Pharmacy 178.1; Estimated Glomerular Filt Rate > 60; Glucose Random 141 mg/dL (60-115); Potassium 4.4 mmol/L (3.3-5.1); Sodium 138 mmol/L (135-145)
[2020-07-02 05:25] VITALS: BP 157/65
[2020-07-02] MEDS: HYDROmorphone HCl 0.5 MG/0.5 ML SYRINGE 0.25 MG IVPUSH (05:26)
[2020-07-02] MEDS: ondansetron HCL 4 MG/2 ML VIAL IVPUSH (05:27)
[2020-07-02] MEDS: Lactated Ringers 1,000 ML 125 ML IVCONT (05:27)
[2020-07-02] MEDS: Famotidine/PF 20 MG/2 ML VIAL IVPUSH (07:07)
[2020-07-02] MEDS: Docusate Sodium 100 MG CAPSULE PO (07:07)
[2020-07-02] MEDS: Losartan Potassium 50 MG TABLET PO (07:08)
[2020-07-02] MEDS: oxyCODONE HCl Immed Release 15 MG TABLET 30 MG PO (07:08)
[2020-07-02 07:48] VITALS: BP 130/68; PULSE 64; RESP 19; TEMP 36.4; O2SAT 96
[2020-07-02 08:10] LABS: Glucose, Whole Blood 141 mg/dL (60-115)
--- NOTE | 2020-07-02 08:11 | HO.POSTANES ---
Post Anesthesia Evaluation Post Anesthesia Evaluation Vital Signs: Vital Signs Temp Pulse Resp BP Pulse Ox 07/02/20 07:48 97.6 F 64 19 130/68 96 07/02/20 05:25 157/65 H 07/02/20 04:00 98.4 F 69 20 166/78 H 97 07/01/20 23:20 98.0 F 60 20 146/77 H 98 Anesthesia: General Endotracheal-GETA Mental Status: Awake Pain Control: Satisfactory Nausea/Vomiting: None Hydration: Adequate Anesthesia-Related Issues: No Anes. Related Issues
--- NOTE | 2020-07-02 09:31 | MHC.CM.PN ---
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 D/C PLAN: HOME TODAY SELF-CARE, FOR TRANSPORT HCP: BERENICE JACK () [phone], NO ALTERNATE, COPY REQUESTED. PCP: KATIE PAINTING
== END 2020-07-02 09:46 | disposition home or self-care (01) | DRG 621 ==
LOC: HO.SSSA 10:56 → HO.S3 11:52
PROVIDERS: Physician Assistant; Admitting Provider Surgery; PCP Family Medicine; Visit Provider Surgery
PROC: 0DB64Z3 Excision of Stomach, Percutaneous Endoscopic Approach, Vertical (ICD-10-PCS; principal; 2020-07-01 07:30)
DX: E66.01 Morbid (severe) obesity due to excess calories (principal); G47.30 Sleep apnea, unspecified; Z68.43 Body mass index [BMI] 50.0-59.9, adult; E78.00 Pure hypercholesterolemia, unspecified; E11.9 Type 2 diabetes mellitus without complications; K44.9 Diaphragmatic hernia without obstruction or gangrene; Z98.84 Bariatric surgery status; Z20.822 Contact with and (suspected) exposure to COVID-19; Z79.899 Other long term (current) drug therapy
CPT/HCPCS: 36415; 80048; 82040; 82947; 85025; 85610; 85730; 86850; 86900; 86901; 87635; 88307; 88342; 93005; 99024; J0131; J0690; J1100; J1170; J2060; J2250; J2405; J2550; J2765; J3010

== ENCOUNTER → 2020-07-16 16:12 | Outpatient (BNVA) | payer MEDICARE, MEDICAID, SELFPAY | PROVIDERS: PCP Family Medicine; Visit Provider Physician Assistant | DX: E66.01 Morbid (severe) obesity due to excess calories (principal); K91.2 Postsurgical malabsorption, not elsewhere classified; K44.9 Diaphragmatic hernia without obstruction or gangrene; Z90.3 Acquired absence of stomach [part of]; Z98.84 Bariatric surgery status; Z98.890 Other specified postprocedural states; Z87.19 Personal history of other diseases of the digestive system; Z68.42 Body mass index [BMI] 45.0-49.9, adult | CPT/HCPCS: 99212 ==

== ENCOUNTER → 2020-08-11 15:05 | Outpatient (BNVA) | payer MEDICARE, MEDICAID, SELFPAY | PROVIDERS: PCP Family Medicine; Visit Provider Physician Assistant | DX: K91.2 Postsurgical malabsorption, not elsewhere classified (principal); K44.9 Diaphragmatic hernia without obstruction or gangrene; E66.01 Morbid (severe) obesity due to excess calories; Z90.3 Acquired absence of stomach [part of]; Z98.890 Other specified postprocedural states; Z98.84 Bariatric surgery status; Z87.19 Personal history of other diseases of the digestive system; Z68.42 Body mass index [BMI] 45.0-49.9, adult | CPT/HCPCS: 99212 ==

== ENCOUNTER → 2021-01-29 08:07 | Outpatient (BNVA) | payer MEDICARE, MEDICAID, SELFPAY | PROVIDERS: PCP Family Medicine; Visit Provider Dietitian, Registered ==